=== PATIENT | male | born 1975 | race Caucasian/White ===

== ENCOUNTER 2018-12-29 10:01 | Day surgery (SDC) | payer OTHER ==
[2018-12-29] VITALS (10 sets, daily range): BP systolic 101–133; BP diastolic 58–82; PULSE 86–99; RESP 11–22; Ht 175.3 cm; Wt 136.4 kg
[~2018-12-29] VITALS: Ht 175.3 cm; Wt 136.4 kg
[2018-12-29] MEDS ORDERED: GLIM4TAB PO (11:00)
[2018-12-29] MEDS ORDERED: METF850T13 PO (11:00)
[2018-12-29] MEDS ORDERED: SIMV40TA2 PO (11:01)
[2018-12-29] MEDS ORDERED: AMLO-147 PO (11:01)
[2018-12-29] MEDS ORDERED: LIRA0.6P2 SQ (11:01)
[2018-12-29] MEDS ORDERED: EMPA25TA PO (11:02)
[2018-12-29] MEDS ORDERED: LOSA1TAB25 PO (11:02)
[2018-12-29] MEDS ORDERED: ASPI81TA52 PO (11:03)
[2018-12-29] MEDS ORDERED: SOD CHLORIDE 0.9% 1,000 ML IV SCH (11:30)
--- NOTE | 2018-12-29 11:55 | PREAC ---
Date/Time of Note Date/Time of Note DATE: 12/29/18 TIME: 11:53 Anesthesia Eval and Record Evaluation Time Pre-Procedure Interview DATE: 12/29/18 TIME: 11:53 Age 43 Sex male NPO: 8 hrs Preoperative diagnosis Left Foot Charcot deformity Planned procedure Left foot excision of bone arch Past Medical History Past Medical History: Includes Cardio: HTN, Dyslipidemia Endo: Diabetes Pulm: Sleep Apnea GI: Obesity Surgery & Anesthesia Issues No known issue Meds Anticoagulation: No Beta Celso within 24 hr: No Reason Beta Celso not given: Pt. not on B-Celso Reported Medications Aspirin (Low Dose Aspirin) 81 Mg Tablet.dr, 81 MG PO DAILY, #30 TAB 12/29/18 Empagliflozin (Jardiance) 25 Mg Tablet, 25 MG PO DAILY, TAB 12/29/18 Losartan-Hydrochlorothiazide (Losartan-HCTZ) 100-25 Mg Tab, 1 TAB PO DAILY, TAB 12/29/18 Amlodipine Besylate* (Amlodipine Besylate*) 10 Mg Tablet, 10 MG PO DAILY, #30 TAB 12/29/18 Liraglutide (Victoza 3-Juan) 0.6 Mg/0.1 Ml Pen.injctr, 1.8 MG SQ DAILY, SYR 12/29/18 Simvastatin* (Zocor*) 40 Mg Tablet, 40 MG PO QHS, #30 TAB 12/29/18 Glimepiride* (Glimepiride*) 4 Mg Tablet, 4 MG PO WITH BREAKFAST DINNE, TAB 12/29/18 Metformin Hcl* (Metformin Hcl*) 850 Mg Tablet, 850 MG PO WITH MEALS, #60 TAB 12/29/18 Current Medications Sodium Chloride 1,000 ml @ 25 mls/hr Q24H IV ; Start 12/29/18 at 11:30 Meds reviewed: Yes Allergies Coded Allergies: No Known Allergy (Unverified , 12/29/18) Allergies Reviewed: Yes Labs/Studies Labs Reviewed: Reviewed by anesthesiologist Result Diagram: 12/29/18 1040 Laboratory Tests 12/29/18 10:40 test: N/A Studies: ECG (n/a), CXR (n/a) Pre-procedure Exam Last vitals Vital Signs Date Temp Pulse Resp B/P (MAP) Pulse Ox O2 O2 Flow FiO2 Time Delivery Rate 12/29/18 98.0 99 16 133/82 97 Room Air 11:04 (99) Airway: Adequate mouth opening, Adequate thyromental dist Mallampati: Mallampati II Teeth: Normal Lung: Normal Heart: Normal ASA Physical Status ASA physical status: 3 Emergency: None Planned Anesthetic General/MAC: LMA Nerve block: Sciatic (left) Planned Pain Management Single shot nerve block, Parenteral pain med Pre-operative Attestations Prior to commencing anesthesia and surgery, the patient was re-evaluated, there was verification of: *The patient's identity *The results of appropriate recent lab work and preoperative vital signs *The above evaluation not changing prior to induction *Anesthetic plan, risk benefits, alternative and complications discussed with patient/family; questions answered; patient/family understands, accepts and wishes to proceed. BROWN BOBO MD December 29, 2018 11:55
[2018-12-29] MEDS ORDERED: PROPOFOL 20 ML ONE ×2 (11:59→12:02)
[2018-12-29] MEDS ORDERED: CEFAZOLIN 1 GM INJ ONE ×2 (11:59→12:02)
[2018-12-29] MEDS ORDERED: MIDAZOLAM 1 MG/ML 2 ML INJ ONE (11:59)
[2018-12-29] MEDS ORDERED: FENTAnyl 50 MCG/ML VIAL IV PRN ×3 (12:00)
[2018-12-29] MEDS ORDERED: HYDROmorphONE 1 MG/5 ML IV SYRINGE IV PRN ×3 (12:00)
[2018-12-29] MEDS ORDERED: hydrALAzine 20 MG INJ IV PRN (12:00)
[2018-12-29] MEDS ORDERED: ROPIVACAINE 0.5 % 30 ML VIAL ONE (12:00)
[2018-12-29] MEDS ORDERED: LABETALOL HCL 20MG INJ IV PRN (12:00)
[2018-12-29] MEDS ORDERED: EPHEDrine 25 MG/5 ML SYG IV PRN (12:00)
[2018-12-29] MEDS ORDERED: ONDANSETRON 4 MG INJ IV PRN (12:00)
[2018-12-29] MEDS ORDERED: METOCLOPRAMIDE 10 MG INJ IV PRN (12:00)
[2018-12-29] MEDS ORDERED: OXYCODONE/ACETAMINOPHEN (5/325) TAB PO PRN (12:00)
[2018-12-29] MEDS ORDERED: BUPIVACAINE 0.5% (SDV) 30 ML INJ ONE (12:20)
[2018-12-29] MEDS ORDERED: LIDOCAINE 2% (MDV) 20 ML INJ ONE (12:20)
--- NOTE | 2018-12-29 12:38 | HPN ---
Date/Time of Note Date/Time of Note DATE: 12/29/18 TIME: 12:38 Interval H&P Admission Note Pt. seen H&P reviewed: No system changes FLORA FERRARO DPM December 29, 2018 12:38
[2018-12-29] MEDS ORDERED: ROPIVACAINE 0.2% 20 ML VIAL ONE (12:52)
[2018-12-29] MEDS ORDERED: ONDANSETRON 4 MG INJ ONE (13:11)
[2018-12-29] MEDS ORDERED: KETOROLAC 30 MG INJ ONE (13:12)
[2018-12-29] MEDS ORDERED: POLYMYXIN/BACITRACIN 1L IRRIG ONE (13:12)
[2018-12-29] MEDS ORDERED: METOCLOPRAMIDE 10 MG INJ ONE (13:12)
[2018-12-29] MEDS ORDERED: DEXAMETHASONE 4 MG/ML 5 ML INJ ONE (13:12)
[2018-12-29] MEDS ORDERED: EPHEDrine 25 MG/5 ML SYG ONE (13:14)
--- NOTE | 2018-12-29 13:30 | SIPON ---
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 Surgeon see signature line bindery assistant none Anesthesia: general Estimated blood loss: minimal Transfusion Required none Specimen none Grafts/Implants none Complications none FLORA FERRARO DPM December 29, 2018 13:30
--- NOTE | 2018-12-29 13:36 | PAC ---
Date/Time of Note Date/Time of Note DATE: 12/29/18 TIME: 13:36 Post-Anesthesia Notes Post-Anesthesia Note Last documented vital signs Vital Signs Date Temp Pulse Resp B/P (MAP) Pulse Ox O2 O2 Flow FiO2 Time Delivery Rate 12/29/18 98.4 99 16 133/82 97 Room Air 13:34 (99) Activity: WNL Respiratory function: WNL Cardiovascular function: WNL Mental status: Baseline Pain reasonably controlled: Yes Hydration appropriate: Yes Nausea/Vomiting absent: Yes BROWN BOBO MD December 29, 2018 13:36
--- NOTE | 2019-01-04 10:06 | OPR ---
DATE OF OPERATION: 12/29/2018 SURGEON: Vamshi Sung DPM ANESTHESIOLOGIST: ANESTHESIA: Local with IV sedation. PREOPERATIVE DIAGNOSIS: Chronic ulcer, left plantar foot. POSTOPERATIVE DIAGNOSIS: Chronic left foot plantar left foot. PROCEDURE PERFORMED: Resection of exostosis plantar left arch. DESCRIPTION OF PROCEDURE: The 0was brought into the operating room, placed on the table in a secure supine position. Cardiac morning and IV sedation and an ankle pneumatic tourniquet were utilized for this case. Preoperatively, a total of 10 mL of 0.5 percent Marcaine plain were infiltrated into the left foot in the form of a local block. Upon administering anesthesia and upon admission of anesthesia of the left foot with combination of general anesthesia, the left foot was then prepped and draped in the usual sterile manner. An ankle pneumatic tourniquet was utilized for this case. The ankle pneumatic tourniquet was inflated to 250 mmHg. Upon achieving anesthesia, the left foot was then exposed and procedure number 1 was then performed. A 4 cm incision was placed just inferior to the navicular cuneiform articulation of the left foot. The incision was deepened. Superficial bleeders were cauterized and bovied as necessary. The flexor hallucis longus tendon was identified and retracted plantarly exposing the hypertrophic navicular cuneiform articulation from the Charcot arthropathy deformity of the left foot. The prominent exostosis was resected with a power sagittal saw and rasped smooth. No sharp edges were left behind. The surgical site was irrigated with sterile saline mixed with bacitracin solution. The chronic inflammatory tissue plantar to the exostosis was also resected with tenotomy scissors. The subcutaneous tissue was closed with 3-0 Vicryl simple interrupted sutures. The subcutaneous tissue was closed with 4-0 Vicryl simple interrupted sutures and the skin edges were reapproximated with 4-0 nylon horizontal mattress stitches. The dressing consisted of Xeroform gauze, 4 x 4 gauze, 4 inch Kerlix roll, and 2 inch Coban into some a compressive dressing. The ankle pneumatic tourniquet was then deflated. Immediate hyperemia to all digits of the left foot were noted instantaneously upon deflating the ankle tourniquet. No intraoperative complications were encountered. Patient tolerated the above procedure well. The patient left the OR with vital signs stable and satisfactory. The patient will follow up 1 week postop. Dictated By: Vamshi Sung DPM /[email or web address] /Document#: [id number]
== END 2018-12-29 15:00 | disposition home or self-care (01) ==
LOC: SDS 10:01
PROVIDERS: ATTEND Podiatrist Primary Podiatric Medicine
DX: D16.32 Benign neoplasm of short bones of left lower limb (principal); M14.672 Charcot's joint, left ankle and foot; L97.529 Non-pressure chronic ulcer of other part of left foot with unspecified severity; I10 Essential (primary) hypertension; E11.9 Type 2 diabetes mellitus without complications; E78.5 Hyperlipidemia, unspecified; Z79.82 Long term (current) use of aspirin; Z79.84 Long term (current) use of oral hypoglycemic drugs
CPT/HCPCS: 28100; 82962; 84132; J0690; J1100; J1885; J2250; J2405; J2765; J2795; J3010; Z7512; Z7610